=== PATIENT | male | born 1960 | race Caucasian/White ===

== ENCOUNTER → 2017-02-10 | Outpatient (CLI) | payer OTHER ==
--- NOTE | ~2017-02-10 | CT57 ---
[facility] A Service of [facility] RADIOLOGY TEXT RESULTS PATIENT: SALMA PEÑA LOCATION: [facility] : 58 UNIT #: [id number] AGE: [address]: Rudy Barba MD SEX: M ORDER DR: [id number] [facility]. [place], [place] [address] [id number] O MR#: [id number] Acc #: [id number] NAME: SALMA PEÑA : 1960 SEX: M STUDY DATE/TIME: 02/10/2017 16:53 UNIT: [facility] ROOM: STUDY DESCRIPTION: CT Chest Wo Cont Attending Physician: Rudy Barba M.D. Referring Physician: Rudy Barba M.D. Ordering Physician: Rudy Barba M.D. Primary Care Physician: Diana Oneill Aprn MEDICAL IMAGING REPORT This report is preliminary unless electronic signature is present EXAM CT chest without contrast HISTORY Patient has a history of prostate cancer and on a CT scan of the chest in July of 2016 it was noted to have multiple bilateral pulmonary nodules. This is a followup study. TECHNIQUE Axial CT images were obtained from the lower thoracic inlet through the dome of the diaphragm. No intravenous contrast material was administered. This CT exam was performed with one or more of the following radiation dose reduction techniques: Automatic exposure control, adjustment of mA and/or kV according to patient size, and iterative reconstruction. FINDINGS Patient does have background emphysematous changes. Three noncalcified pulmonary nodules within the right lower lung ranging in size from 4-6 mm are unchanged when compared to exam from July of 2016. The thyroid gland, trachea, and esophagus appear unremarkable. There is no pleural or pericardial effusion. There are coronary artery calcifications. Shotty mediastinal lymph nodes are noted. The thoracic aorta measures within normal size limits. Images through the upper abdomen do not demonstrate any acute abnormalities. IMPRESSION 1. A followup CT in July of 2018, however, is suggested to document a full 2 years of stability. 2. Background emphysematous changes. [facility] A Service of [facility] RADIOLOGY TEXT RESULTS PATIENT: SALMA PEÑA LOCATION: [facility] : 58 UNIT #: [id number] AGE: [address]: Rudy Barba MD SEX: M ORDER DR: Dictated by... Diamond Hernandez M.D. THIS IS AN ELECTRONICALLY VERIFIED REPORT Diamond Hernandez M.D. at 02/11/2017 5:35 PM AFF/aa TD: 02/11/2017 12:18 JOB #: [id number] MEDICAL IMAGING REPORT Page 1 of 1 COPY
== END | disposition home or self-care (01) ==
LOC: CCAT 13:40
DX: R91.1 Solitary pulmonary nodule (principal)
CPT/HCPCS: 36415; 71250; G0103